=== PATIENT | female | born 1935 | race Caucasian/White ===

== ENCOUNTER 2019-09-06 13:19 | Emergency (ER) | payer OTHER ==
--- OUTSIDE RECORDS SUMMARY | 2019-09-06 13:31 | XMS REPORT | Clinical Summary ---
:1935 Author Organization [facility] Address [address] [place] [address] Care Team Providers Name Role Phone Amado Chambers Primary Care Provider Allergies Active Allergy Reactions Severity Noted Date Comments Adhesive Tape-Silicones 05/21/2015 Lactose 05/27/2015 GI disturbances Latex Rash Low 12/21/2014 Magnesium Oxide 08/14/2013 Other 05/21/2015 Medications Medication Sig Dispensed Refills Start End Date Status Date atorvastatin (LIPITOR) 0 Active 80 MG tablet 9 besifloxacin Apply 1 drop 0 Acti ve (BESIVANCE) 0.6 % to eye. 6 drops,suspension brimonidine-timolol Reported on 0 Active (COMBIGAN) 0.2-0.5 % 04/22/2016 ophthalmic solution calcium Take 1 0 Active carbonate-vitamin D3 tablet by (OYSTER SHELL mouth. CALCIUM-VIT D3) 500 mg-200 unit per tablet clopidogrel (PLAVIX) 75 0 Active mg tablet 9 difluprednate (DUREZOL) Apply 1 drop 0 Active 0.05 % drops to eye. 9 DULoxetine (CYMBALTA) 0 Active 30 MG capsule 9 hydroCHLOROthiazide as needed. 0 Active (HYDRODIURIL) 25 MG 7 tablet indapamide (LOZOL) 1.25 Take 1.25 mg 0 Active MG tablet by mouth. levothyroxine Take 100 mcg 0 Act jose (SYNTHROID, LEVOXYL) by mouth. 100 mcg tablet sertraline (ZOLOFT) 25 0 Active MG tablet 7 solifenacin (VESICARE) Take 5 mg by 0 Active 10 MG tablet mouth. lisinopril Take 10 mg 0 Active (PRINIVIL,ZESTRIL) 10 by mouth. mg tablet multivitamin Take 1 0 Active (THERAGRAN) tablet tablet by mouth. amLODIPine (NORVASC) 10 Take 10 mg 0 12/13 Discontinued mg tablet by mouth 9 19 (Therapy daily. completed) Active Problems Problem Noted Date Coronary artery disease involving jamul coronary annie ry of jamul heart 12/13/2018 without angina pectoris Bilateral carotid artery stenosis 12/13/2018 Dizzy 12/13/2018 History of KS (myocardial infarction) 12/13/2018 Preoperative cardiovascular examination 12/13/2018 Stented coronary artery 12/13/2018 Encounters Date Type Specialty Care Team Description 01/03/2019 Telephone Cardiology Anam Johnson MA Results (Nucle ar stress test) 12/13/2018 Office Visit Cardiology Valeri Benedict MD Coronary artery disease involving jamul coronary artery of jamul heart without angina pectoris (Primary Dx); Preoperative ca rdiovascular examination; Bilateral carot id artery stenosis; Dizzy; History of KS ( myocardial infarction); Stented coronar y artery after 09/05/2018 Social History Tobacco Use Types Packs/Day Years Used Date Former Smoker 1 Quit: 12/13/18 80 Smokeless Tobacco: Never Used Alcohol Use Drinks/Week oz/Week Comments Yes 2 Glasses of wine 6.0 2 Shots of liquor 2 Cans of beer Sex Assigned at Date Recorded Not on file Job Start Date Occupation Industry Not on file Not on file Not on file Travel History Travel Start Travel End No recent travel history available. Last Filed Vital Signs Vital Sign Reading Time Taken Comments Blood Pressure 117/71 12/13/2018 11:24 AM CDT Pulse 65 12/13/2018 11:24 AM CDT Temperature - - Respiratory Rate - - Oxygen Saturation - - Inhaled Oxygen Concentration - - Weight 66.7 kg (147 lb) 12/13/2018 11:24 AM CDT Height 156.8 cm (5' 1.75") 12/13/2018 11:24 AM CDT Body Mass Index 27.1 12/13/2018 11:24 AM CDT Plan of Treatment Health Maintenance Due Date Last Done Comments SHINGLES VACCINES (#1) 02/18/1986 65+ PNEUMOCOCCAL VACCINE (1 of 2 - PCV13) 02/18/2001 INFLUENZA VACCINE 10/28/2019 Procedures Procedure Name Priority Date/Time Associated Diagnosis Comme nts NM MYOCARDIAL Routine 12/29/2018 8:20 Coronary artery Results for this PERFUSION REST AM CDT disease involving procedur e are in STRESS 1 DAY jamul coronary artery the r esults of jamul heart section. without angina pectoris Bilateral carotid artery stenosis Dizzy CV STRESS TEST Routine 12/29/2018 8:20 Coronary artery Result s for this NUCLEAR CARDIO AM CDT disease involving procedur e are in jamul coronary artery the r esults of jamul heart section. without angina pectoris Bilateral carotid artery stenosis Dizzy US CAROTID DUPLEX Routine 12/27/2018 1:32 Coronary artery Res ults for this BILATERAL PM CDT disease involving procedure are in jamul coronary artery the r esults of jamul heart section. without angina pectoris Bilateral carotid artery stenosis Dizzy TTE COMPLETE, WO Routine 12/26/2018 5:12 Coronary artery Resu lts for this CONTRAST, W DOPPLER PM CDT disease involving pro cedure are in ([id number]) jamul coronary artery the r esults of jamul heart section. without angina pectoris Bilateral carotid artery stenosis Dizzy ECG 12-LEAD Routine 12/13/2018 10:28 Preoperative Results for this AM CDT cardiovascular procedure are in examination the results section. after 09/05/2018 Results Cv stress test (12/29/2018 8:20 AM CDT) Resting HR 64 [facility] Resting BP 130 [facility] Peak MET Achieved 1.0 [facility] Protocol Name LexiScan H MUSE Time in Exercise 00:01:00 [facility] Phase Max Systolic BP 130 [facility] Max Diastolic BP 83 [facility] Max Heart Rate 92 [facility] Max Predicted Heart 138 [facility] Rate Target HR Formula (220 - Age)*85% [facility] Test Indication CORONARY ARTERY DISEASE [facility] Arrhy During Ex [facility] ECG Interp Before EX [facility] ECG Interp During Ex [facility] Ex Summary Comment H MUSE Chest Pain Statement none [facility] Overall HR Response [facility] to Exercise Overall BP Response [facility] To Exercise Reason for As per Lexiscan H MUSE Termination protocol Stress Test -Waveform interpreted [facility] Impression in report associated with image study. No interpretation is provided as part of this Stress ECG report.-Electronically Signed By Jordan TOM, Marvin Brower ([id number]), slot editor Esteban Mcrae ([id number]) on 12/30/2018 4:37:43 PM Specimen Narrative Performed At This result has an attachment that is no t available. Performing Organization Address City/State/Zipcode Phone Number [facility] MUSE [address] [place] [address] Nm myocardial perfusion (12/29/2018 8:20 AM CDT) Specimen Narrative Performed At [facility] [address] [id number] Myocardial Pe rfusion Imaging Report Stress ECG tracings are availab le in M[employer], [employer] and [employer] All ECG interpretations a re included in this report Pat.Name: ISATU BRAND Pat.ID: [id number] St.Date: 12/27/2018 Refer.MD: VALERI BENEDICT MD Exam Time: 8:23:00 AM Study Type:Myocardial Perfusion Imaging Height: 61in Weight: 146.69lb BSA: 1.66 m2 Ag e: 1935,83Y Sex: FEMALE Nuclear Tech:ALANNA Sarmiento Nuclear Event ID:[id number] Order ID: [id number] Reason for Study:CAD, unspecified* Procedures: Single Day Rest / Stress Race: C Clinical Symptoms:Regadenoson SUMMARY: BASELINE ECG Normal Sinus Rhythm, Ante rolateral KS STRESS TEST RESULTS Maximal Predicted HR 138 beats/minute 85% Maximal Predicted HR 117 beats/minute Stress Test Duration 1 minutes 00 seco nds Resting Heart Rate 65 beats/minute Max imal Heart Rate 92 beats/minute Resting Blood Pressure 130/83 mmHg Max imal Blood Pressure 130/83 mmHg % Maximal Heart Rate Achieved 67% Symptoms During Test Nausea, Dizziness Reason for Stopping Test As per regade noson protocol Maximal ST-segment shift None Stress-Induced Arrhythmias None Ischemic electrocardiographic changes (S T-segment depression) did not occur at peak regadenoson stress. STRESS TEST INTERPRETATION Normal erica l regadenoson stress test. SCINTIGRAPHIC RESULTS Perfusion Defect Size (% LV) 30% Total 0% Ischemia 30% Scar Left Ventricular Perfusion Results There is a severe apical-lateral perfusi on defect during stress which remains unchanged with rest imaging. The re is a moderate apical, mid inferolateral and mid anterolateral perf usion defect during stress which remains unchanged with rest imagin g. There is a mild basal anterolateral perfusion defect during stress which remains unchanged with rest imaging. Gated SPECT Results The post stress left ventricular ejectio n fraction is 37% with akinesis of all hypoperfused segments Le ft ventricular end-diastolic volume is 78 ml; end-systolic volume is 49 ml. The left ventricle is of normal size at stress and rest. Conclusion Abnormal regadenoson Tc-99m sestamibi my ocardial perfusion study compatible with scar in the circumflex c oronary artery vascular territory. The apical perfusion defect c ould be due stenosis of the left anterior descending coronary artery . The LVEF is moderately depressed. Comments The study results indicate a intermediat e (1%-2%) annual risk for a cardiac or non-fatal myocardial in farction. Study Quality/Artifacts The study quality is good. Comparison to Previous Study None available. FINDINGS: Signed 12/29/2018 10:27 AM Marvin Ortega MD Procedure Note Interface, Radiology Results In - 2018 10:28 AM CDT [facility] and Cardiac CT [address] [place] [address] Myocardial Perfusion I maging Report Stress ECG tracings are available in [employer], [employer] and [employer] All ECG interpretations are in cluded in this report Pat.Name: ISATU BRAND Eloisa D: [id number] .Date: 12/27/2018 Refer .MD: VALERI BENEDICT MD Exam Time: 8:23:00 AM Study Type:Myocardial Perfusion Imaging Height: 61in Weigh t: 146.69lb BSA: 1.66 m2 Age: 12 1935,83Y Sex: FEMALE Nucle ar Tech:ALANNA Sarmiento Nuclear Event ID:[id number] Order ID: [id number] Reason for Study:CAD, unspecified* Procedures: Single Day Rest / Stress Race: C Clinical Symptoms:Regadenoson SUMMARY: BASELINE ECG Normal Sinus Rhythm, Anter olateral KS STRESS TEST RESULTS Maximal Predicted HR 138 beats/minute 8 5% Maximal Predicted HR 117 beats/minute Stress Test Duration 1 minutes 00 secon ds Resting Heart Rate 65 beats/minute Maxi mal Heart Rate 92 beats/minute Resting Blood Pressure 130/83 mmHg Maxi mal Blood Pressure 130/83 mmHg % Maximal Heart Rate Achieved 67% Symptoms During Test Nausea, Dizziness Reason for Stopping Test As per regaden oson protocol Maximal ST-segment shift None Stress-Induced Arrhythmias None Ischemic electrocardiographic changes (S T-segment depression) did not occur at peak regadenoson stress. STRESS TEST INTERPRETATION Normal erica l regadenoson stress test. SCINTIGRAPHIC RESULTS Perfusion Defect Size (% LV) 30% Total 0% Ischemia 30% Scar Left Ventricular Perfusion Results There is a severe apical-lateral perfusi on defect during stress which remains unchanged with rest imaging. The re is a moderate apical, mid inferolateral and mid anterolateral perf usion defect during stress which remains unchanged with rest imagin g. There is a mild basal anterolateral perfusion defect during s tress which remains unchanged with rest imaging. Gated SPECT Results The post stress left ventricular ejectio n fraction is 37% with akinesis of all hypoperfused segments Le ft ventricular end-diastolic volume is 78 ml; end-systolic volume is 49 ml. The left ventricle is of normal size at stress and rest. Conclusion Abnormal regadenoson Tc-99m sestamibi my ocardial perfusion study compatible with scar in the circumflex c oronary artery vascular territory. The apical perfusion defect c ould be due stenosis of the left anterior descending coronary artery . The LVEF is moderately depressed. Comments The study results indicate a intermediat e (1%-2%) annual risk for a cardiac or non-fatal myocardial in farction. Study Quality/Artifacts The study quality is good. Comparison to Previous Study None available. FINDINGS: Signed 12/29/2018 10:27 AM Marvin Ortega MD Performing Organization Address City/State/Zipcode Phone Number [facility] [address] [place] [address] Us carotid duplex (12/27/2018 1:32 PM CDT) Specimen Narrative Performed At [facility] Carotid Annie ry Ultrasound Report Pat.Name: ISATU BRAND Pat.ID: [id number] .Date: 12/27/2018 Refer.MD: VALERI BENEDICT MD Exam Time: 1:00:00 PM Study Type:C arotid Age: 12 1935,83Y Sex: FEMALE Sonogrphr: Nathalia Peters RVT Pat. Stat.:[facility] ol: SD, CPT - 4: 03185 Echo Fabiana nt ID:[id number] Order ID: [id number] Reason for Study:Abnormal EKG, Dizziness , Hx of KS, CAD, Stented coronary artery SUMMARY: CAROTID ARTERY SCAN RIGHT: There is smooth intimal lining in the common carotid artery. There is minimal hard plaque plaque note d in the bulb. Colorflow is undisturbed. There is antegrade flow in the vertebral artery. LEFT: There is smooth intimal li nohemi in the common carotid artery. There is hard and calcified no fani in the proximal internal carotid artery. Colorflow is undisturb ed . There is antegrade flow in the vertebral artery. PRELIMINARY FINDINGS 1. <50% stenosis in the bilateral inte rnal carotid artery. 2. There is antegrade flow in the verteb ral artery, bilaterally. 4. Mildly elevated velocity in the left subclavian artery. PHYSICIAN INTERPRETATION Bilateral carotid duplex examination dem onstrated atherosclerotic plaques in the bulbs. Less than 50% stenosis in the bulb and i nternal carotid artery, bilaterally. There is antegrade flow in the vertebral artery, bilaterally. FINDINGS: Carotid Findings: Right Left Verteb.Flw Antegrade Antegrade Subclavian Biphasic Biphasic MEASUREMENTS: DOPPLER Right CCA Dist CCA Dist PSV 49.2 cm/s CCA Dist EDV 3.28 cm/s Right CCA Mid CCA Mid PSV 66.7 cm/s CCA Mid EDV 7.66 cm/s Right CCA Prox CCA Prox PSV 70 cm/s CCA Prox EDV 5.47 cm/s Right Bulb Bulb PSV 49.2 cm/s Bulb EDV 6.56 cm/s Right ECA ECA PSV 45.9 cm/s ECA EDV 0 cm/s Right ICA Dist ICA Dist PSV 63.8 cm/s ICA Dist EDV 16.2 cm/s Right ICA Mid ICA Mid PSV 54.8 cm/s ICA Mid EDV 11.7 cm/s Right ICA Prox ICA Prox PSV 49.2 cm/s ICA Prox EDV 8.75 cm/s Right Vertebral Vertebral PSV 60.9 cm/s Vertebral EDV 8.71 cm/s Left CCA Dist CCA Dist PSV 43.5 cm/s CCA Dist EDV 7.24 cm/s Left CCA Prox CCA Prox PSV 65.2 cm/s CCA Prox EDV 0 cm/s Left Bulb Bulb PSV 36.8 cm/s Bulb EDV 6.13 cm/s Left ECA ECA PSV 64 cm/s ECA EDV 0 cm/s Left ICA Dist ICA Dist PSV 57.3 cm/s ICA Dist EDV 13.6 cm/s Left ICA Mid ICA Mid PSV 50.4 cm/s ICA Mid EDV 6.92 cm/s Left ICA Prox ICA Prox PSV 59.4 cm/s ICA Prox EDV 10.7 cm/s Left Vertebral Vertebral PSV 37.2 cm/s Vertebral EDV 0 cm/s Left CCA Mid CCA Mid PSV 50 cm/s CCA Mid ED V 7 cm/s Right ECA Prox ECA Prox PSV 46 cm/s ECA Prox EDV 0 cm/s Left ECA Prox ECA Prox PSV 64 cm/s ECA Prox EDV 0 cm/s Right SCA Prox SCA Prox PSV 153 cm/s SCA Prox EDV 0 cm/s Left SCA Prox SCA Prox PSV 194 cm/s SCA Prox EDV 0 cm/s Right ICA/CCA Ratio ICA/CCA PSV 0.738 Left ICA/CCA Ratio ICA/CCA PSV 1.19 Signed 12/30/2018 02:41 AM Valeri Benedict MD Procedure Note Interface, Radiology Results In - 2018 2:42 AM CDT [facility] Carotid Artery Ultras ound Report Pat.Name: ISATU BRAND I D: [id number] .Date: 12/27/2018 Refer .MD: VALERI BENEDICT MD Exam Time: 1:00:00 PM Study Type:Carotid Age: 12 1935,83Y Sex: FEMALE Sonogrphr: Nathalia Peters RVT Pat. Stat.:Outpatient Room: [facility] Vol: SD, CPT - 4: 39225 Echo Event ID:[id number] Order ID: [id number] Reason for Study:Abnormal EKG, Dizziness , Hx of KS, CAD, Stented coronary artery SUMMARY: CAROTID ARTERY SCAN RIGHT: There is smooth intimal lining i n the common carotid artery. There is minimal hard plaque plaque note d in the bulb. Colorflow is undisturbed. There is antegrade flow i n the vertebral artery. LEFT: There is smooth intimal linin g in the common carotid artery. There is hard and calcified not ed in the proximal internal carotid artery. Colorflow is undisturbe d . There is antegrade flow in the vertebral artery. PRELIMINARY FINDINGS 1. <50% stenosis in the bilateral inter nal carotid artery. 2. There is antegrade flow in the verteb ral artery, bilaterally. 4. Mildly elevated velocity in the left subclavian artery. PHYSICIAN INTERPRETATION Bilateral carotid duplex examination dem onstrated atherosclerotic plaques in the bulbs. Less than 50% stenosis in the bulb and i nternal carotid artery, bilaterally. There is antegrade flow in the vertebral artery, bilaterally. FINDINGS: Carotid Findings: Right Left Verteb.Flw Antegrade Antegrade Subclavian Biphasic Biphasic MEASUREMENTS: DOPPLER Right CCA Dist CCA Dist PSV 49.2 cm/s CCA Dist EDV 3.28 cm/s Right CCA Mid CCA Mid PSV 66.7 cm/s CCA Mid EDV 7.66 cm/s Right CCA Prox CCA Prox PSV 70 cm/s CCA Prox EDV 5.47 cm/s Right Bulb Bulb PSV 49.2 cm/s Bulb EDV 6.56 cm/s Right ECA ECA PSV 45.9 cm/s ECA EDV 0 cm/s Right ICA Dist ICA Dist PSV 63.8 cm/s ICA Dist EDV 16.2 cm/s Right ICA Mid ICA Mid PSV 54.8 cm/s ICA Mid EDV 11.7 cm/s Right ICA Prox ICA Prox PSV 49.2 cm/s ICA Prox EDV 8.75 cm/s Right Vertebral Vertebral PSV 60.9 cm/s Vert ebral EDV 8.71 cm/s Left CCA Dist CCA Dist PSV 43.5 cm/s CCA Dist EDV 7.24 cm/s Left CCA Prox CCA Prox PSV 65.2 cm/s CCA Prox EDV 0 cm/s Left Bulb Bulb PSV 36.8 cm/s Bulb EDV 6.13 cm/s Left ECA ECA PSV 64 cm/s ECA EDV 0 cm/s Left ICA Dist ICA Dist PSV 57.3 cm/s ICA Dist EDV 13.6 cm/s Left ICA Mid ICA Mid PSV 50.4 cm/s ICA Mid EDV 6.92 cm/s Left ICA Prox ICA Prox PSV 59.4 cm/s ICA Prox EDV 10.7 cm/s Left Vertebral Vertebral PSV 37.2 cm/s Vert ebral EDV 0 cm/s Left CCA Mid CCA Mid PSV 50 cm/s CCA Mid EDV 7 cm/s Right ECA Prox ECA Prox PSV 46 cm/s ECA Prox EDV 0 cm/s Left ECA Prox ECA Prox PSV 64 cm/s ECA Prox EDV 0 cm/s Right SCA Prox SCA Prox PSV 153 cm/s SCA Prox EDV 0 cm/s Left SCA Prox SCA Prox PSV 194 cm/s SCA Prox EDV 0 cm/s Right ICA/CCA Ratio ICA/CCA PSV 0.738 Left ICA/CCA Ratio ICA/CCA PSV 1.19 Signed 12/30/2018 02:41 AM Valeri Benedict MD Performing Organization Address City/State/Zipcode Phone Number [facility] [address] [place] [address] Echocardiogram complete w contrast and 3D if needed (12/26/2018 5:12 PM CDT) Specimen Narrative Performed At [facility] Echo cardiography Report Pat.Name: ISATU BRAND.ID: [id number] .Date: 12/26/2018 Refer.MD: VALERI BENEDICT MD Exam Time: 1:53:00 PM Study Type:R outine Echo Height: 62in Weight: 147lb BSA: 1.68 m2 Ag e: 1935,83Y Sex: FEMALE BP: 117/71 HR: 70 bpm Sonogrphr: VICKI Brown FASE Pat. Stat.:Outpatient Room: [facility] Study Status:Final Echo Event ID:[id number] Order ID: [id number] Reason for Study:Coronary artery disease involving jamul coronary artery of jamul heart without angina pe ctoris Procedures: 2D Echo, Colorflow Doppler Race: C SUMMARY: RV/LV systolic function are normal. FINDINGS: LV: LV size is normal. LV EF is normal. Overall wall motion is normal. Estimated EF is 60-64%. RV: RV size is mildly enlarged. RV systolic function is normal. LA: LA volume is mildly enlarge d. RA: RA size is normal. AO: Aortic root diameter is nor mal. NO: No pericardial effusion. AV: Aortic valve sclerosis. MV: Severe mitral annular calci fication. A trace of mitral regurgitation. PV: No structural PV abnormalit ies noted. TV: No structural TV abnormalit ies noted. Mild tricuspid regurgitation Olvera: Diastolic dysfunction Grade I (Mild): Impaired relaxation with normal LV filling pressures. Other: Estimated PA systolic pressu re is 30 mmHg, assuming a mean RAP of 5 mmHg. MEASUREMENTS: 2D Parasternal Long [place] Ao An 1.8 cm LVPWd 1.3 cm Ao Rtd 3 cm Index 1.8 cm/m2 LA Ds 3.1 cm IVSd 1.2 cm RWT 0.8 LVIDd 3.2 cm Index 1.9 cm/m2 LV Mass 132.8 g (87-129 ) LVIDs 1.6 cm LVOT 1.9 cm LV%fs 51.2 % Left Ventricle LVM Index 79 g/m LA Sng Plane LA Area 17.3 cm (8.8-23.4) LA Vol 53.4 ml Index 31.8 ml/m2 LA LngAx 4.7 cm LVOT LVOT Area 2.9 cm Signed 12/27/2018 03:10 PM Sandy Powers M.D. Procedure Note Interface, Radiology Results In - 2018 3:11 PM CDT [facility] Echocardiography Report Pat.Name: ISATU BRAND PatAngelaI D: [id number] St.Date: 12/26/2018 Refer .MD: VALERI BENEDICT MD Exam Time: 1:53:00 PM Study Type:Routine Echo Height: 62in Weigh t: 147lb BSA: 1.68 m2 Age: 12 1935,83Y Sex: FEMALE BP: 117/71 HR: 70 bpm Sonogrphr: VICKI Brown FASE Pat. Stat.:Outpatient Room: [facility] Study Status:Final Echo Event ID:[id number] Order ID: [id number] Reason for Study:Coronary artery disease involving jamul coronary artery of jamul heart without angina pe ctoris Procedures: 2D Echo, Colorflow Doppler Race: C SUMMARY: RV/LV systolic function are normal. FINDINGS: LV: LV size is normal. LV EF is no rmal. Overall wall motion is normal. Estimated EF is 60-64 %. RV: RV size is mildly enlarged. RV systolic function is normal. LA: LA volume is mildly enlarged. RA: RA size is normal. AO: Aortic root diameter is normal . NO: No pericardial effusion. AV: Aortic valve sclerosis. MV: Severe mitral annular calcific ation. A trace of mitral regurgitation. PV: No structural PV abnormalities noted. TV: No structural TV abnormalities noted. Mild tricuspid regurgitation Olvera: Diastolic dysfunction Grade I (Mild): Impaired relaxation with normal LV filling pressu res. Other: Estimated PA systolic pressure is 30 mmHg, assuming a mean RAP of 5 mmHg. MEASUREMENTS: 2D Parasternal Long [place] Ao An 1.8 cm LVPW d 1.3 cm Ao Rtd 3 cm Inde x 1.8 cm/m2 LA Ds 3.1 cm IVSd 1.2 cm RWT 0.8 LVIDd 3.2 cm Inde x 1.9 cm/m2 LV Mass 132.8 g (87-129) LVIDs 1.6 cm LVOT 1.9 cm LV%fs 51.2 % Left Ventricle LVM Index 79 g/m LA Sng Plane LA Area 17.3 cm (8.8-23.4) L A Vol 53.4 ml Index 31.8 ml/m2 LA LngAx 4.7 cm LVOT LVOT Area 2.9 cm Signed 12/27/2018 03:10 PM Sandy Powers M.D. Performing Organization Address City/State/Zipcode Phone Number [facility] [address] [place] [address] ECG 12 lead (12/13/2018 10:28 AM CDT) Pathologist Sig nature Ventricular rate 66 [facility] Atrial rate 66 [facility] IL interval 198 [facility] QRSD interval 72 [facility] QT interval 400 [facility] QTC interval 419 [facility] P axis 1 64 [facility] QRS axis 1 29 [facility] M[facility] T wave axis 114 [facility] MUSE EKG impression Normal sinus rhythm-Low [facility] voltage QRS-Septal infarct , age undetermined-Abnormal ECG-- Specimen Narrative Performed At This result has an attachment that is no t available. 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
--- OUTSIDE RECORDS SUMMARY | 2019-09-06 13:32 | XMS REPORT | Clinical Summary ---
:1935 Author Organization [facility] Address [address] [place] [address] Care Team Providers Name Role Phone Joseph Chambers MD Primary Care Provider Allergies Active Allergy Reactions Severity Noted Date Comments Adhesive Tape 12/21/2016 Lactose Other (See Comments) 05/27/2015 GI dist urbances Latex Rash Low 12/21/2014 Medications Medication Sig Dispensed Refills Start Date End Date Status difluprednate (DUREZOL) Apply to eye(s). 0 Active 0.05 % Drop brimonidine-timolol Place 1 drop 0 Active (COMBIGAN) 0.2-0.5 % into both eyes ophthalmic solution every 12 (twelve) hours. gabapentin (NEURONTIN) Take 300 mg by 0 Active 300 MG capsule mouth daily . lisinopril Take 10 mg by 0 Activ e (PRINIVIL,ZESTRIL) 10 MG mouth daily. tablet levothyroxine Take 100 mcg by 0 Active (SYNTHROID, LEVOTHROID) mouth daily. 100 MCG tablet calcium Take 1 tablet by 0 Act jose carbonate-vitamin D2 500 mouth 2 (two) mg(1,250mg) -200 unit times daily. tablet multivitamin per tablet Take 1 tablet by 0 Active mouth daily. magnesium 30 mg tablet Take 30 mg by 0 Active mouth daily . amLODIPine (NORVASC) 10 Take 10 mg by 0 Active MG tablet mouth daily. lactase (LACTAID) 3,000 Take 1 tablet by 0 Active unit tablet mouth 3 (three) times daily with meals. solifenacin (VESICARE) Take 5 mg by 0 Active 10 MG tablet mouth daily. indapamide (LOZOL) 1.25 Take 1.25 mg by 0 Active MG tablet mouth every morning. besifloxacin 0.6 % DrpS Apply to eye(s) 0 Active 3 (three) times daily. nepafenac 0.3 % DrpS Apply to eye(s). 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 Last Filed Vital Signs Not on file Plan of Treatment Not on file Implants Implanted Type Area Vb Net Developer Device Shelf Model / Identifier Expiration Serial / Date Lot Valve Glaucoma Ahmed Flx Plt - [id number] Ophthalmology Right: [employer] [facility] 10/17/2019 FP-7 / Implanted: Qty: 1 on 12/24/2014 by Adeel Powers MD Eye [id number] / Iol Acrysof Roberta 6.0 13 23d [id number] - [id number] Ophthalmol ogy Left: Eye [facility] 01/27/2020 [id number] / Implanted: Qty: 1 on 05/28/2015 by Maddie Winston MD [id number] / Cornea Whole Cornea - [id number] Tissue Right: [facility] 12/29/2016 CORNEA / Implanted: Qty: 1 on 12/22/2016 by Maddie Winston MD Graft/Delgado bstitute Cornea [facility] [id number] / [id number] Sterile Cornea Half Halo Half Thickness Right: 11/14/2015 / Implanted: Qty: 1 on 12/24/2014 by Adeel Powers MD Eye [id number] / Results Not on fileafter 09/05/2018 Insurance Payer Benefit Plan / Group Subscriber ID Type Phone A ddress [employer] ALL xxxxxxxxx Maps Contracted Guarantor Name Account Type Relation to Date of Phone Billing Patient Address Christina Begum Personal/Family Self [id number] (Home) [address] [place] [address]
--- OUTSIDE RECORDS SUMMARY | 2019-09-06 13:32 | XMS REPORT ---
:1935 Author Organization [employer] Care Team Providers Name Role Phone Sanaz Hunter Provider Role Unavailable Allergies No Known Allergies Problems Problem Type Condition Code Onset Dates Condition Statu s Problem Chronic obstructive pulmonary J44.0 Active disease with acute lower respiratory infection Problem Acute bronchitis, unspecified J20.9 Active Problem Jose cyst M71.20 Active Problem Fecal incontinence R15.9 Active Problem Laryngitis J04.0 Active Problem Bilateral hearing loss, H91.93 Acti ve unspecified hearing loss type Problem Depression with anxiety F41.8 Acti ve Problem Cardiac ischemia I25.9 Active Problem Stage 3 chronic kidney disease N18.3 Active Problem Contusion of thoracic wall, S20.20XA Active unspecified area of thoracic wall, initial encounter Problem Acquired hypothyroidism E03.9 Acti ve Problem Rib pain on right side R07.81 Activ e Problem Anemia D64.9 Active Problem Neuropathy, peripheral G62.9 Activ e Problem Essential hypertension I10 Activ e Problem Incontinence R32 Active Problem Status post fall Z91.81 Active Problem Contusion of right upper arm, S40.021A Active initial encounter Problem Right arm pain M79.601 Active Problem History of [place] (myocardial I25.2 Ac tive infarction) Problem Low back pain M54.5 Active Problem Cataract H26.9 Active Problem Osteoarthritis M19.90 Active Problem Renal failure N19 Active Problem 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
--- OUTSIDE RECORDS SUMMARY | 2019-09-06 13:32 | XMS REPORT | Continuity of Care Document ---
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 Neck pain Active 03/29/19 Problem 08/18/2018 [facility] (finding) 00 OSTEOARTHRITIS( Active 03/29/19 Problem 08/18/2018 SKILLED NURSING I Confirmed) 00 Depression(Conf Active Problem 08/18/2018 NO MEDS, DUE [facility] irmed)1 TO LOSS OF JOB LAST WK HX OF KIDNEY Resolved Problem 08/18/2018 [facility] INFECTIONS(Conf irmed) Hypertensive Active Problem 08/18/2018 MED X2 [facility] disorder, systemic arterial (disorder) HYPOTHYROIDISM( Active Problem 08/18/2018 MED X1 SKILLED NURSING I Confirmed)4 Medications Medication Details Route Status Patient Ordering Order Source Instructions Provider Date Vicodin 5 mg-500 1 tabs, 535707841 [facility] mg oral tablet Oral, 013 q4hr, PRN for pain, # 24 tabs, 0 Refill(s) Flintstones 1 tabs, Active [facility] Multivitamins Chewed, 013 oral tablet, Daily, # chewable 100 tabs, 0 Refill(s) Magnesium Oxide mg tabs, Active [facility] 400 MG Oral Oral, 013 Tablet Daily, 0 Refill(s) Vitamin B-12 500 mcg tabs, Active [facility] mcg oral tablet Oral, 013 Daily, 0 Refill(s) gabapentin 300 mg caps, Active [facility] MG Oral Capsule Oral, BID, 013 0 Refill(s) Synthroid Daily, 0 Active [facility] Refill(s) 013 amlodipine 5 mg mg tabs, Active [facility] oral tablet Oral, 013 Daily, 0 Refill(s) lisinopril 10 mg mg tabs, Active [facility] oral tablet Oral, qAM, 013 0 Refill(s) Allergies, Adverse Reactions, Alerts Substance Category Reaction Severity Reaction Status Date Comments S ource type Reported TAPE Assertion SKIN Propensity Active SKILLED NURSING I IRRITATION to adverse reactions to substance Immunizations No Data Provided for This Section Results No Data Provided for This Section Pathology Reports No Data Provided for This Section Diagnostic Reports No Data Provided for This Section Consultation Notes No Data Provided for This Section Discharge Summaries No Data Provided for This Section History and Physicals No Data Provided for This Section Vital Signs No Data Provided for This Section Encounters Location Location Encounter Encounter Reason Attending ADM DC Stat us Source Details Type Number For Provider Date Date Visit [facility] Outpatient [id number] Mohammad 08/16 08/16 Active Surg ical [facility] Outpatient [id number] Mohammad 08/16 08/17 [facility] Procedures No Data Provided for This Section Assessment and Plan No Data Provided for This Section Plan of Care No Data Provided for This Section Social History Social History Date Source Social History TypeResponse 09/08/2012 [facility] Smoking Status Former smoker; Type: Cigarettes; Tobacco use per day: 28; St opped at age: 61; entered on: 09/08/12 Family History No Data Provided for This Section Advance Directives No Data Provided for This Section Functional Status No Data Provided for This Section
--- OUTSIDE RECORDS SUMMARY | 2019-09-06 13:32 | XMS REPORT ---
[...] arm pain M79.601 Active Problem History of [place] (myocardial I25.2 Ac tive infarction) Problem Low [...]
--- OUTSIDE RECORDS SUMMARY | 2019-09-06 13:33 | XMS REPORT ---
:1935 Author Organization eClinicalWorks Care Team Providers Name Role Phone Elsa Sanaz Provider Role Unavailable Allergies, Adverse Reactions, Alerts Substance Reaction Event Type Cordran tape hives Non Drug Allergy Problems Problem Type Condition Code Onset Dates Condition Statu s Assessment Acquired hypothyroidism E03.9 Acti ve Assessment Stage 3 chronic kidney disease N18.3 Active Assessment Essential hypertension I10 Activ e Assessment History of [place] (myocardial I25.2 Ac tive infarction) Problem Chronic obstructive pulmonary J44.0 Active disease with acute lower respiratory infection Problem Acute bronchitis, unspecified J20.9 Active Problem Jose cyst M71.20 Active Problem Fecal incontinence R15.9 Active Problem Depression with anxiety F41.8 Acti ve Problem Bilateral hearing loss, H91.93 Acti ve unspecified hearing loss type Problem Cardiac ischemia I25.9 Active Problem Incontinence R32 Active Problem Contusion of thoracic wall, S20.20XA Active unspecified area of thoracic wall, initial encounter Problem Contusion of right upper arm, S40.021A Active initial encounter Problem Stage 3 chronic kidney disease N18.3 Active Problem Rib pain on right side R07.81 Activ e Problem Right arm pain M79.601 Active Problem Osteoarthritis M19.90 Active Problem Anemia D64.9 Active Problem Chronic diarrhea K52.9 Active Problem Neuropathy, peripheral G62.9 Activ e Problem History of [place] (myocardial I25.2 Ac tive infarction) Problem Status post fall Z91.81 Active Problem Essential hypertension I10 Activ e Problem Acquired hypothyroidism E03.9 Acti ve Assessment Depression with anxiety F41.8 Acti ve Problem Cataract H26.9 Active Assessment Chronic diarrhea K52.9 Active Problem Skin cancer C44.90 Active Problem Renal failure N19 Active Problem Low back pain M54.5 Active Problem 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 Problem Laryngitis J04.0 Active Problem Renal failure, unspecified N19 A ctive chronicity Problem 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 Ac tive Medications Medication Code Code Instructions Start End Status Dosage System Date Date Metoprolol Tartrate NDC 32973989192 25 MG Orally Act jose 1 tablet Twice daily with food Hydrochlorothiazide [facility] 69084148801 25 MG Orally Act jose 1 tablet Once daily in the morning Multivitamin [facility] 97818458910 - Orally Active not defined Lidoderm [facility] 98629319136 5 % Externally Active 1 pa tch Once a day to skin remove after 12 hours Magnesium [facility] [address]-63 400 MG Orally Active 1 tablet bid with a meal Plavix [facility] 47980324279 75 MG Orally Active 1 table t Once a day Levothyroxine Sodium [facility] 98244537624 75 MCG Orally A ctive 1 tablet Once daily in the morning on an empty stomach Amlodipine Besylate [facility] 52420923046 5 MG Orally Acti ve 1 tablet Once daily Duloxetine HCl [facility] 20064152451 30 MG Orally Active 1 capsule Once daily Gabapentin [facility] 34151410917 300 MG Active TAKE 1 TABLET BY MOUTH 3 TIMES DAILY *MAY MAKE DROWSY* Atorvastatin Calcium [facility] 94999426851 80 MG Orally Ac tive 1 tablet Once daily in evening Vitamin B12 [facility] 02329071412 1000 MCG Active 1 table t Orally Once a day Clopidogrel Bisulfate [facility] 27493630328 75 MG Orally A ctive 1 tablet Once daily Results No Known Results Summary Purpose eClinicalWorks Submission
[2019-09-06] MEDS ORDERED: TETANUS & DIPHTHERIA TOX,ADULT 0.5 ML VIAL ONE (14:55)
[2019-09-06] MEDS ORDERED: NA CHLORIDE 0.9% 500 ML ONE (14:55)
[2019-09-06] MEDS ORDERED: CEFAZOLIN/SWI 1gm 2 GM/20 ML SYR ONE (14:55)
[2019-09-06 15:02] LABS: Absolute Lymphocytes (CBC) 1.3 K/uL (0.7-4.9); Basophils % 0.4 % (0-1.3); Lymphocytes % 10.8 % (15.3-44.8); MPV 10.2 fL (7.6-11.3); RBC Red Blood Cell Count 3.96 M/uL (3.86-4.86)
--- NOTE | 2019-09-06 15:06 | RAD REPORT ---
EXAM DESCRIPTION: CT - [id number] - 09/06/2019 2:53 pm CLINICAL HISTORY: Trauma, head and neck injury. PAIN COMPARISON: Facial Bones W/ Mpr dated 09/06/2019 TECHNIQUE: Axial 5 mm thick images of the head were obtained. Axial 2 mm thick images of the cervical spine were obtained with sagittal and coronal reconstruction images generated and reviewed. All CT scans are performed using dose optimization technique as appropriate and may include automated exposure control or mA/KV adjustment according to patient size. FINDINGS: CT HEAD WITHOUT CONTRAST: No acute hemorrhage, hydrocephalus or extra-axial collection is identified.Moderate generalized brain atrophy is present with mild periventricular and deep white matter chronic microvascular ischemic ch anges.No areas of brain edema or midline shift. The paranasal sinuses and mastoids are clear.The calvarium is intact. CT CERVICAL SPINE WITHOUT CONTRAST: No fracture or subluxation.Moderate multilevel spondylosis is present of the cervical spine with 3 mm degenerative anterolisthesis of C5 on 6.No prevertebral soft tissues swelling is identified. IMPRESSION: No acute intracranial or cervical spine findings.
--- NOTE | 2019-09-06 15:10 | RAD REPORT ---
EXAM DESCRIPTION: CT - CTFB CLINICAL HISTORY: Deformity;Facial pain;Fracture Trauma, facial pain COMPARISON: Head Brain Wo Cont dated 04/27/2017 TECHNIQUE: Axial 2 mm thick images of the face were obtained with sagittal and coronal reconstructio n images. All CT scans are performed using dose optimization technique as appropriate and may include automated exposure control or mA/KV adjustment according to patient size. FINDINGS: Moderate nasal bone fracture is present with adjacent soft tissue swelling.No additional f acial bone fracture seen. Moderate right periorbital soft tissue swelling.The mandible is intact. The globes and orbital contents are grossly unremarkable.The paranasal sinuses and mastoids are clear . IMPRESSION: Moderate nasal bone fracture.
[2019-09-06 15:14] LABS: Potassium 5.3 mmol/L (3.5-5.1)
[2019-09-06] MEDS ORDERED: MORPHINE 2 MG/ML SYR ONE (15:16)
[2019-09-06] MEDS ORDERED: ONDANSETRON 4 MG/2 ML VIAL ONE (15:16)
--- NOTE | 2019-09-06 15:36 | ER ---
Nurse's Notes [facility] Name: Christina Begum Age: 84 yrs Sex: Female : 1935 Arrival Date: 09/06/2019 Time: 13:25 Bed 5 Private MD: Diagnosis: Laceration without foreign body of other part of head-face, mouth;Fracture of nasal bones Presentation: 09/05 13:31 Chief complaint: Patient's son or daughter states: she was hard headed and she [place] the [place]ank[place] and she stumbled over the achvr dog and down she went, she is on blood thinners, she doesn't know what she hit her head on and all kinds of garbage and old tires and concrete pieces down there, and 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 Coronavirus screen: Patient denies a cough. Patient denies shortness of breath or difficulty breathing. Patient denies measured and/or subjective temperature greater than 100.4F prior to today's visit. Patient denies travel on a cruise ship or to a country the [facility] currently lists as an affected area. Patient denies contact with known and/or suspected case of COVID-19. Ebola Screen: Patient denies travel to an Ebola-affected area in the 21 days before illness onset. Initial Sepsis Screen: Does the patient meet any 2 criteria? No. Patient's initial sepsis screen is negative. Does the patient have a suspected source of infection? No. Patient's initial sepsis screen is negative. Risk Assessment: Do you want to hurt yourself or someone else? Patient reports no desire to harm self or others. Onset of symptoms was September 06, 2019. 13:31 Method Of Arrival: Wheelchair tw2 13:31 Acuity: ABELINO 3 tw2 13:43 Care prior to arrival: None. Mechanism of Injury: Fall from standing position. Trauma tw2 event details: Injury occurred in the [facility]. Triage Assessment: 13:34 General: Appears uncomfortable, Behavior is calm, cooperative, appropriate for age. tw2 Pain: Complains of pain in face and nose. Trauma Activation: Alert Physician: ED Physician; Name: Dr العراقي; Notified At: 13:29; Arrived At: 14:30 Physician: General Surgeon; Name: ; Notified At: 13:29; Arrived At: Physician: Radiology; Name: Carlito; Notified At: 13:29; Arrived At: Physician: Respiratory; Name: ; Notified At: 13:29; Arrived At: Physician: Lab; Name: ; Notified At: 13:29; Arrived At: Historical: - Allergies: 13:34 No Known Allergies; tw2 - Home Meds: 13:42 Multi-Day Oral tab [Active]; levothyroxine 75 mcg tab 1 tab once daily [Active]; tw2 indapamide 1.25 mg Oral tab 1 tab once daily [Active]; hydrochlorothiazide 25 mg Oral tab 1 tab once daily [Active]; gabapentin 300 mg Oral cap 1 cap 3 times per day [Active]; duloxetine 30 mg Oral cpDR 1 cap once daily [Active]; amlodipine 5 mg tab 1 tab once daily [Active]; clopidogrel oral oral [Active]; - PMHx: 13:34 Depression; Hypertension; Hypothyroidism; tw2 - PSHx: 13:42 leg surgery; Right cornea transplant; tw2 - Immunization history:: Last tetanus immunization: unknown. - Social history:: Smoking status: . Screenin:40 Abuse screen: Denies threats or abuse. Nutritional screening: No deficits noted. tw2 Tuberculosis screening: No symptoms or risk factors identified. Fall Risk Secondary diagnosis (15 points) impaired mobility. Primary Survey: 14:15 NO uncontrolled hemorrhage observed. A: The patient is alert. Airway: patent, No sv supplemental oxygen in use on arrival. Oral cavity: clear, Trachea midline. Breathing/Chest: Respiratory pattern: regular, Respiratory effort: spontaneous, unlabored, Chest inspection: symmetrical rise and fall of the chest. Circulation: Heart tones present. Pulses: palpable right radial artery and left radial artery. Skin color: pink, Skin temperature: warm, dry. Disability Alert. Exposure/Environment: All clothing and personal items were removed. Forensic evidence collection is not deemed to be indicated at this time. Items placed in patient belonging bag. There is no evidence of uncontrolled external bleeding. Obvious injury(ies) are noted at this time: mx abrasions, road rash, and laceration A warming method has been applied: A warm blanket has been provided to the patient. 14:30 Reassessment Airway Airway Patent Oxygen No O2 Oral cavity Clear Trachea Midline sv Breathing/Chest Respiratory pattern Regular Respiratory effort Spontaneous Unlabored Chest inspection Symmetrical Circulation Heart tones Present Pulses Palpable Color [place] Temperature Warm Dry Disability Alert. Secondary Survey: 14:15 HEENT: Eyes: Edema noted right eye. Nose: bleeding noted to bilateral nares. deformity sv noted bridge of nose. Gastrointestinal: No deficits noted. : No signs and/or symptoms were reported regarding the genitourinary system. Musculoskeletal: No signs and/or symptoms reported regarding the musculoskeletal system. Injury Description: Abrasion sustained to nose and inside upper and lower lip is bleeding, was sustained 30-60 minutes ago. Laceration sustained to inside upper and inner lip and nose is 0.5 to 2.5 cm long, mild bleeding was sustained 30-[address] rash noted to under her nose. Assessment: 14:15 Reassessment: Patient appears in no apparent distress at this time. No changes from sv previously documented assessment. Derm: Skin is pink, warm \T\ dry. Bruising that is on right eye, right cheek and nose. Musculoskeletal: Swelling present in right eye, right cheek and nose. 15:00 Reassessment: Patient appears in no apparent distress at this time. No changes from sv previously documented assessment. Patient and/or family updated on plan of care and expected duration. Pain level reassessed. Patient is alert, oriented x 3, equal unlabored respirations, skin warm/dry/pink. 16:19 Reassessment: Patient appears in no apparent distress at this time. Patient and/or sv family updated on plan of care and expected duration. Pain level reassessed. Patient is alert, oriented x 3, equal unlabored respirations, skin warm/dry/pink. Patient states feeling better. Patient states symptoms have improved. Vital Signs: 13:31 BP 139 / 77; Pulse 52; Resp 17; Temp 97.8; Pulse Ox 97% on R/A; Weight 63.5 kg (R); tw2 Height 5 ft. 2 in. (157.48 cm); Pain 5/10; 14:30 BP 142 / 66; Pulse 52; Resp 16; Temp 98; Pulse Ox 99% ; sv 14:55 BP 170 / 51; Pulse 51; Resp 16; Temp 98; Pulse Ox 100% ; sv 15:00 BP 139 / 71; Pulse 50; Resp 16; Pulse Ox 100% ; sv 16:00 BP 134 / 72; Pulse 51; Resp 16; Temp 98; Pulse Ox 100% ; sv 13:31 Body Mass Index 25.61 (63.50 kg, 157.48 cm) tw2 [place]rum Coma Score: 13:31 Eye Response: spontaneous(4). Verbal Response: oriented(5). Motor Response: obeys sv commands(6). Total: 15. 14:30 Eye Response: spontaneous(4). Verbal Response: oriented(5). Motor Response: obeys sv commands(6). Total: 15. 14:42 Eye Response: spontaneous(4). Verbal Response: oriented(5). Motor Response: obeys casey commands(6). Total: 15. 14:55 Eye Response: spontaneous(4). Verbal Response: oriented(5). Motor Response: obeys sv commands(6). Total: 15. 16:00 Eye Response: spontaneous(4). Verbal Response: oriented(5). Motor Response: obeys sv commands(6). Total: 15. Trauma Score (Adult): 13:31 Eye Response: spontaneous(1); Verbal Response: oriented(1); Motor Response: obeys sv commands(2); Systolic BP: > 89 mm Hg(4); Respiratory Rate: 10 to 29 per min(4); Tammie Score: 15; Trauma Score: 12 14:30 Eye Response: spontaneous(1); Verbal Response: oriented(1); Motor Response: obeys sv commands(2); Systolic BP: > 89 mm Hg(4); Respiratory Rate: 10 to 29 per min(4); Tammie Score: 15; Trauma Score: 12 14:55 Eye Response: spontaneous(1); Verbal Response: oriented(1); Motor Response: obeys sv commands(2); Systolic BP: > 89 mm Hg(4); Respiratory Rate: 10 to 29 per min(4); Tammie Score: 15; Trauma Score: 12 16:00 Eye Response: spontaneous(1); Verbal Response: oriented(1); Motor Response: obeys sv commands(2); Systolic BP: > 89 mm Hg(4); Respiratory Rate: 10 to 29 per min(4); Orrum Score: 15; Trauma Score: 12 ED Course: 13:25 Patient arrived in ED. fj1 13:30 Patient maintains SpO2 saturation greater than 95% on room air. tw2 13:33 Triage completed. tw2 13:33 Arm band placed on. tw2 13:36 Bed in low position. Call light in reach. Side rails up X 1. Adult w/ patient. tw2 13:42 Jacob العراقي MD is Attending Physician. casey 13:43 Danielle Blum RN is Primary Nurse. sv 14:15 Thermoregulation: warm blanket given to patient. sv 14:16 Wound care: to abrasions, road rash, and lacerations located on right lower eyelid, sv nose and mouth, inside of lower and upper lip was cleaned with Hibiclens, ice pack applied. Patient tolerated well. 14:40 Inserted saline lock: 20 gauge in right antecubital area, using aseptic technique. sv Blood collected. Flushed right antecubital with 5 ml normal saline. 14:54 CT Head C Spine In Process Unspecified. EDMS 14:54 CT Facial Bones W/O Con In Process Unspecified. EDMS 14:[address] Patient moved back from CT. sv 15:35 Eleuterio Fink MD is Referral Physician. casey 16:19 No provider procedures requiring assistance completed. IV discontinued, intact, sv bleeding controlled, Pressure dressing applied, IV infiltrated, informed Dr العراقي. Administered Medications: 15:05 Drug: NS 0.9% 500 ml Route: IV; Rate: bolus; Site: right antecubital; sv 16:18 Follow up: Response: No adverse reaction; IV Status: Completed infusion; IV Intake: sv 250ml 15:05 Drug: Ancef 2 grams Route: IVPB; Infused Over: 30 mins; Site: right antecubital; sv 15:05 Drug: Tetanus-Diphtheria Toxoid Adult 0.5 ml {Software Tester: [email or web address]. Exp: sv 05/12/2021. Lot #: [id number]. } Route: IM; Site: right deltoid; 15:21 Follow up: Response: No adverse reaction sv 15:12 Drug: Zofran (Ondansetron) 4 mg Route: IVP; Site: right antecubital; sv 16:00 Follow up: Response: No adverse reaction sv 15:14 CANCELLED (Physician Discretion): Tylenol 650 mg PO once sv 15:14 Drug: morphine 2 mg {Note: rass1.} Route: IVP; Site: right antecubital; sv 16:00 Follow up: Response: No adverse reaction; Marked relief of symptoms; Pain is decreased; sv RASS: Alert and Calm (0) 15:36 Drug: Neosporin Ointment 1 application Route: Topical; Site: affected area; sv 15:57 Drug: Augmentin 875 mg Route: PO; sv 16:17 Follow up: Response: No adverse reaction sv Intake: 13:31 PO: 0ml; Total: 0ml. sv 14:30 PO: 0ml; Total: 0ml. sv 14:55 PO: 0ml; Total: 0ml. sv 16:00 PO: 0ml; Total: 0ml. sv 16:18 IV: 250ml; Total: 250ml. sv Output: 13:31 Urine: 0ml; Total: 0ml. sv 14:30 Urine: 0ml; Total: 0ml. sv 14:55 Urine: 0ml; Total: 0ml. sv 16:00 Urine: 0ml; Total: 0ml. sv Outcome: 15:35 Discharge ordered by . casey 16:19 Discharged to home via wheelchair, with friend. sv 16:19 Condition: stable 16:19 Discharge instructions given to patient, friend, Instructed on discharge instructions, follow up and referral plans. medication usage, wound care, Demonstrated understanding of instructions, follow-up care, medications, wound care, Prescriptions given X 2. 16:20 Patient's length of stay in the Emergency Department was greater than 2 hours. d/t sv needing ER disposition by ER MDPatient's length of stay extended due to 16:20 Patient left the ED. 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
--- NOTE | 2019-09-06 15:36 | EDPHYS ---
Physician Documentation [facility] Name: Christina Begum Age: 84 yrs Sex: Female : 1935 Arrival Date: 09/06/2019 Time: 13:25 Bed 5 Private MD: ED Physician Jacob العراقي HPI: 09/05 14:32 This 84 yrs old Female presents to ER via Wheelchair with complaints of Fall casey Injury. 14:32 Details of fall: The patient fell from an upright position, while walking. Onset: The casey symptoms/episode began/occurred just prior to arrival. Associated injuries: The patient sustained injury to the head, contusion, deformity, hematoma, laceration, pain, swelling, tenderness. Severity of symptoms: At their worst the symptoms were moderate, in the emergency department the symptoms are unchanged. The patient has not experienced similar symptoms in the past. Historical: - Allergies: 13:34 No Known Allergies; tw2 - Home Meds: 13:42 Multi-Day Oral tab [Active]; levothyroxine 75 mcg tab 1 tab once daily [Active]; tw2 indapamide 1.25 mg Oral tab 1 tab once daily [Active]; hydrochlorothiazide 25 mg Oral tab 1 tab once daily [Active]; gabapentin 300 mg Oral cap 1 cap 3 times per day [Active]; duloxetine 30 mg Oral cpDR 1 cap once daily [Active]; amlodipine 5 mg tab 1 tab once daily [Active]; clopidogrel oral oral [Active]; - PMHx: 13:34 Depression; Hypertension; Hypothyroidism; tw2 - PSHx: 13:42 leg surgery; Right cornea transplant; tw2 - Immunization history:: Last tetanus immunization: unknown. - Social history:: Smoking status: . ROS: 14:33 Constitutional: Negative for fever, chills, and weight loss, Neck: Negative for injury, casey pain, and swelling, Cardiovascular: Negative for chest pain, palpitations, and edema, Respiratory: Negative for shortness of breath, cough, wheezing, and pleuritic chest pain, Abdomen/GI: Negative for abdominal pain, nausea, vomiting, diarrhea, and constipation, Back: Negative for injury and pain, : Negative for injury, bleeding, discharge, and swelling, MS/Extremity: Negative for injury and deformity, Neuro: Negative for headache, weakness, numbness, tingling, and seizure, Psych: Negative for depression, anxiety, suicide ideation, homicidal ideation, and hallucinations, Allergy/Immunology: Negative for hives, rash, and allergies, Endocrine: Negative for neck swelling, polydipsia, polyuria, polyphagia, and marked weight changes. 14:33 Eyes: Positive for pain. 14:33 Skin: Positive for laceration(s), of the frenulum and lower lip and nose. Exam: 14:33 Constitutional: This is a well developed, well nourished patient who is awake, alert, casey and in no acute distress. Eyes: Pupils equal round and reactive to light, extra-ocular motions intact. Lids and lashes normal. Conjunctiva and sclera are non-icteric and not injected. Cornea within normal limits. Periorbital areas with no swelling, redness, or edema. Neck: Trachea midline, no thyromegaly or masses palpated, and no cervical lymphadenopathy. Supple, full range of motion without nuchal rigidity, or vertebral point tenderness. No Meningismus. Chest/axilla: Normal chest wall appearance and motion. Nontender with no deformity. No lesions are appreciated. Cardiovascular: Regular rate and rhythm with a normal S1 and S2. No gallops, murmurs, or rubs. Normal PMI, no JVD. No pulse deficits. Respiratory: Lungs have equal breath sounds bilaterally, clear to auscultation and percussion. No rales, rhonchi or wheezes noted. No increased work of breathing, no retractions or nasal flaring. Abdomen/GI: Soft, non-tender, with normal bowel sounds. No distension or tympany. No guarding or rebound. No evidence of tenderness throughout. Back: No spinal tenderness. No costovertebral tenderness. Full range of motion. Female : Normal external genitalia. Skin: Warm, dry with normal turgor. Normal color with no rashes, no lesions, and no evidence of cellulitis. MS/ Extremity: Pulses equal, no cyanosis. Neurovascular intact. Full, normal range of motion. Neuro: Awake and alert, GCS 15, oriented to person, place, time, and situation. Cranial nerves II-XII grossly intact. Motor strength 5/5 in all extremities. Sensory grossly intact. Cerebellar exam normal. Normal gait. Psych: Awake, alert, with orientation to person, place and time. Behavior, mood, and affect are within normal limits. 14:33 Head/face: Noted is abrasion(s), contusion, erythema, hematoma, a laceration(s), that is jagged, of the nose and mouth, swelling. 14:33 ENT: Nose: External nose: contusion is noted, deformity is noted, erythema is noted, swelling is noted, Nasal septum: deviates to the left, no septal hematoma appreciated, Nasal mucosa: Dried blood. edematous, Turbinates: are normal, abrasion, that is deep, bleeding, is noted from both nares, and is minimal, clotted blood, in right nare, in left nare, Mouth: Oral mucosa: moist, laceration to upper and lower lip , both superficial , not requiring sutures. Vital Signs: 13:31 BP 139 / 77; Pulse 52; Resp 17; Temp 97.8; Pulse Ox 97% on R/A; Weight 63.5 kg (R); tw2 Height 5 ft. 2 in. (157.48 cm); Pain 5/10; 14:30 BP 142 / 66; Pulse 52; Resp 16; Temp 98; Pulse Ox 99% ; sv 14:55 BP 170 / 51; Pulse 51; Resp 16; Temp 98; Pulse Ox 100% ; sv 15:00 BP 139 / 71; Pulse 50; Resp 16; Pulse Ox 100% ; sv 16:00 BP 134 / 72; Pulse 51; Resp 16; Temp 98; Pulse Ox 100% ; sv 13:31 Body Mass Index 25.61 (63.50 kg, 157.48 cm) tw2 [place] Coma Score: 13:31 Eye Response: spontaneous(4). Verbal Response: oriented(5). Motor Response: obeys sv commands(6). Total: 15. 14:30 Eye Response: spontaneous(4). Verbal Response: oriented(5). Motor Response: obeys sv commands(6). Total: 15. 14:42 Eye Response: spontaneous(4). Verbal Response: oriented(5). Motor Response: obeys casey commands(6). Total: 15. 14:55 Eye Response: spontaneous(4). Verbal Response: oriented(5). Motor Response: obeys sv commands(6). Total: 15. 16:00 Eye Response: spontaneous(4). Verbal Response: oriented(5). Motor Response: obeys sv commands(6). Total: 15. Trauma Score (Adult): 13:31 Eye Response: spontaneous(1); Verbal Response: oriented(1); Motor Response: obeys sv commands(2); Systolic BP: > 89 mm Hg(4); Respiratory Rate: 10 to 29 per min(4); Tammie Score: 15; Trauma Score: 12 14:30 Eye Response: spontaneous(1); Verbal Response: oriented(1); Motor Response: obeys sv commands(2); Systolic BP: > 89 mm Hg(4); Respiratory Rate: 10 to 29 per min(4); Tammie Score: 15; Trauma Score: 12 14:55 Eye Response: spontaneous(1); Verbal Response: oriented(1); Motor Response: obeys sv commands(2); Systolic BP: > 89 mm Hg(4); Respiratory Rate: 10 to 29 per min(4); Tammie Score: 15; Trauma Score: 12 16:00 Eye Response: spontaneous(1); Verbal Response: oriented(1); Motor Response: obeys sv commands(2); Systolic BP: > 89 mm Hg(4); Respiratory Rate: 10 to 29 per min(4); Tammie Score: 15; Trauma Score: 12 MDM: 13:[address] [facility] 14:42 Differential diagnosis: Contusion of Hematoma on Laceration of Intracranial bleed- casey Concussion cerebral contusion, epidural hematoma, sinusitis. Differential diagnosis: abrasion, closed head injury, contusion, fracture, laceration, multiple trauma. Data reviewed: vital signs, nurses notes, lab test result(s), radiologic studies, CT scan. 15:34 Data interpreted: emergency room clerk: rate is 50 beats/min, rhythm is normal sinus rhythm, casey sinus bradycardia. Counseling: I had a detailed discussion with the patient and/or guardian regarding: the historical points, exam findings, and any diagnostic results supporting the discharge/admit diagnosis, lab results, radiology results, the need for outpatient follow up, for definitive care, a plastic surgeon. 09/05 14:30 Order name: CBC with Diff; Complete Time: 15:33 [facility] 09/05 14:30 Order name: Chem 7; Complete Time: 15:33 [facility] 09/05 14:30 Order name: CT Head C Spine; Complete Time: 15:33 [facility] 09/05 14:30 Order name: CT Facial Bones W/O Con; Complete Time: 15:33 [facility] 09/05 14:30 Order name: Ice pack; Complete Time: 14:35 [facility] Administered Medications: 15:05 Drug: NS 0.9% 500 ml Route: IV; Rate: bolus; Site: right antecubital; sv 16:18 Follow up: Response: No adverse reaction; IV Status: Completed infusion; IV Intake: sv 250ml 15:05 Drug: Ancef 2 grams Route: IVPB; Infused Over: 30 mins; Site: right antecubital; sv 15:05 Drug: Tetanus-Diphtheria Toxoid Adult 0.5 ml {Poising Inspector: [employer]. Exp: sv 05/12/2021. Lot #: [id number]. } Route: IM; Site: right deltoid; 15:21 Follow up: Response: No adverse reaction sv 15:12 Drug: Zofran (Ondansetron) 4 mg Route: IVP; Site: right antecubital; sv 16:00 Follow up: Response: No adverse reaction sv 15:14 CANCELLED (Physician Discretion): Tylenol 650 mg PO once sv 15:14 Drug: morphine 2 mg {Note: rass1.} Route: IVP; Site: right antecubital; sv 16:00 Follow up: Response: No adverse reaction; Marked relief of symptoms; Pain is decreased; sv RASS: Alert and Calm (0) 15:36 Drug: Neosporin Ointment 1 application Route: Topical; Site: affected area; sv 15:57 Drug: Augmentin 875 mg Route: PO; sv 16:17 Follow up: Response: No adverse reaction sv Disposition: 09/06/19 15:35 Discharged to Home. Impression: Laceration without foreign body of other part of head - face, mouth, Fracture of nasal bones. - Condition is Stable. - Discharge Instructions: Head Injury, Adult, Facial Laceration, Nasal Fracture, Facial Laceration, Rmfe-dh-[id number], Nasal Fracture, Obne-tz-Sylg, Head Injury, Adult, Hqha-[id number]. - Prescriptions for Augmentin 875- 125 mg Oral Tablet - take 1 tablet by ORAL route every 12 hours for 10 days; 20 tablet. Tylenol- Codeine #3 300-30 mg Oral Tablet - take 2 tablets by ORAL route every 6 hours As needed; 24 tablet. - Medication Reconciliation Form, Thank You Letter, Antibiotic Education, Prescription Opioid Use form. - Follow up: Private Physician; When: 2 - 3 days; Reason: Recheck today's complaints, Continuance of care, Re-evaluation by your physician. Follow up: Eleuterio Fink; When: 2 - 3 days; Reason: Recheck today's complaints, Continuance of care, Re-evaluation by your physician. - Problem is new. - Symptoms have improved. Signatures: Dispatcher [employer] Danielle Martinez RN RN Jacob Beaver MD MD cha Wise, Tara, RN RN tw2 Corrections: (The following items were deleted from the chart) 15:14 15:00 Tylenol 650 mg PO once ordered. casey belle 16:20 15:35 09/06/2019 15:35 Discharged to Home. Impression: Laceration without foreign body sv of other part of head - face, mouth; Fracture of nasal bones. Condition is Stable. Discharge Instructions: Head Injury, Adult, Facial Laceration, Nasal Fracture, Facial Laceration, Rpyz-so-Ottk, Nasal Fracture, Ikxx-rh-Zcvy, Head Injury, Adult, Aznj-ad-Kvny. Prescriptions for Augmentin 875-125 mg Oral Tablet - take 1 tablet by ORAL route every 12 hours for 10 days; 20 tablet, Tylenol-Codeine #3 300-30 mg Oral Tablet - take 2 tablets by ORAL route every 6 hours As needed; 24 tablet. and Forms are Medication Reconciliation Form, Thank You Letter, Antibiotic Education, Prescription Opioid Use. Follow up: Private Physician; When: 2 - 3 days; Reason: Recheck today's complaints, Continuance of care, Re-evaluation by your physician. Follow up: Eleuterio Fink; When: 2 - 3 days; Reason: Recheck today's complaints, Continuance of care, Re-evaluation by your physician. Problem is new. Symptoms have improved. casey
[2019-09-06] MEDS ORDERED: AMOX/K CLAV 875 MG TAB ONE (15:58)
[2019-09-06 16:30] VITALS: TEMP 98; O2SAT 100
[2019-09-06 16:31] VITALS: BP 139/71
== END 2019-09-06 16:20 | disposition home or self-care (01) ==
LOC: ER 13:19
DX: S02.2XXA Fracture of nasal bones, initial encounter for closed fracture (principal); S01.81XA Laceration without foreign body of other part of head, initial encounter; W01.0XXA Fall on same level from slipping, tripping and stumbling without subsequent striking against object, initial encounter; Y93.89 Activity, other specified; Y92.017 Garden or yard in single-family (private) house as the place of occurrence of the external cause; Z23 Encounter for immunization
CPT/HCPCS: 96361; 85025; 80048; 36415; 70450; 72125; 70486; 76377; 90471; 90714; 96375; 96374; 99285; J2270; J0690; J7040; J2405

== ENCOUNTER 2021-01-06 11:25 | Emergency (ER) | payer OTHER ==
[2021-01-06 12:11] LABS: Absolute Lymphocytes (CBC) 1.1 K/uL (0.7-4.9); Basophils % 0.5 % (0-1.3); Hematocrit 33.9 % (36.0-45.0); Lymphocytes % 12.1 % (15.3-44.8); MPV 9.3 fL (7.6-11.3); RBC Red Blood Cell Count 3.87 M/uL (3.86-4.86)
--- NOTE | 2021-01-06 12:59 | RAD REPORT ---
EXAM DESCRIPTION: US - Extremity Venous Uni Ltd - 01/06/2021 12:21 pm CLINICAL HISTORY: PAIN COMPARISON: None. TECHNIQUE: Real-time sonographic evaluation of the right lower extremity deep venous systems was per formed. FINDINGS: Normal compressibility, flow augmentation, phasic flow and spontaneous flow are identified in the right lower extremity common femoral, superficial femoral, popliteal and posterior tibial vei ns. No intraluminal filling defects seen. IMPRESSION: No DVT in the right lower extremity.
--- NOTE | 2021-01-06 13:24 | RAD REPORT ---
EXAM DESCRIPTION: RAD - Hip Right 2 View - 01/06/2021 1:03 pm CLINICAL HISTORY: Right hip pain FINDINGS: No fracture or dislocation is seen. The bones are osteoporotic. Mild osteoarthritis involves the right hip consisting joint space narro wing and subchondral sclerosis
[2021-01-06 13:35] LABS: Potassium 4.8 mmol/L (3.5-5.1)
--- NOTE | 2021-01-06 13:45 | ER ---
Nurse's Notes [facility] Name: Christina Begum Age: 85 yrs Sex: Female : 1935 Arrival Date: 01/06/2021 Time: 11:31 Bed 26 Private MD: Diagnosis: Pain in right leg Presentation: 01/06 11:31 Chief complaint: EMS states: pt in for r thigh pain for the last month that has gotten es2 worse. Reports balance issues and falls, but R thigh pain not related to falls. Does not remember the last time she fell. is on blood thinners. 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 Coronavirus screen: Vaccine status: Patient reports receiving the 2nd dose of the covid vaccine. Ebola Screen: Patient negative for fever greater than or equal to 101.5 degrees Fahrenheit, and additional compatible Ebola Virus Disease symptoms Patient denies exposure to infectious person. Patient denies travel to an Ebola-affected area in the 21 days before illness onset. No symptoms or risks identified at this time. Initial Sepsis Screen: Does the patient meet any 2 criteria? No. Patient's initial sepsis screen is negative. Does the patient have a suspected source of infection? No. Patient's initial sepsis screen is negative. Risk Assessment: Do you want to hurt yourself or someone else? Patient reports no desire to harm self or others. Onset of symptoms. 11:31 Method Of Arrival: [facility] [facility] [place]2 11:31 Acuity: ABELINO 3 es2 Triage Assessment: 11:36 General: Appears well groomed, Behavior is calm, cooperative, appropriate for age. es2 Pain: Complains of pain in right thigh Pain currently is 8 out of 10 on a pain scale. EENT: No signs and/or symptoms were reported regarding the EENT system. Neuro: Level of Consciousness is awake, alert, obeys commands, Oriented to person, place, time, situation, Appropriate for age Speech is normal. Cardiovascular: Capillary refill < 3 seconds Patient's skin is warm and dry. Respiratory: Airway is patent Respiratory effort is even, Respiratory pattern is regular. GI: No signs and/or symptoms were reported involving the gastrointestinal system. : No signs and/or symptoms were reported regarding the genitourinary system. Derm: No signs and/or symptoms reported regarding the dermatologic system. Musculoskeletal: Reports pain in R thigh. Historical: - Home Meds: 11:35 amlodipine 5 mg tab 1 tab once daily [Active]; duloxetine 30 mg Oral cpDR 1 cap once es2 daily [Active]; hydrochlorothiazide 25 mg Oral tab 1 tab once daily [Active]; levothyroxine 75 mcg tab 1 tab once daily [Active]; indapamide 1.25 mg Oral tab 1 tab once daily [Active]; gabapentin 300 mg Oral cap 1 cap 3 times per day [Active]; Multi-Day Oral tab [Active]; - Immunization history:: Adult Immunizations up to date, Client reports receiving the 2nd dose of the Covid vaccine. - Social history:: Smoking status: Patient denies any tobacco usage or history of. Screenin:40 Abuse screen: Denies threats or abuse. Denies injuries from another. Nutritional es2 screening: No deficits noted. Tuberculosis screening: No symptoms or risk factors identified. Fall Risk Fall in past 12 months (25 points). Mental Status- Oriented to own ability (0 pts). Assessment: 11:41 Pain: Complains of pain in R thigh Pain currently is 8 out of 10 on a pain scale. es2 Neuro: Level of Consciousness is awake, alert, obeys commands, Oriented to person, place, time, situation, Appropriate for age Speech is normal. Cardiovascular: Capillary refill < 3 seconds Patient's skin is warm and dry. Respiratory: Airway is patent Respiratory effort is even, Respiratory pattern is regular. GI: No signs and/or symptoms were reported involving the gastrointestinal system. : No signs and/or symptoms were reported regarding the genitourinary system. Vital Signs: 11:31 BP 187 / 71; Pulse 65; Resp 18; Temp 98.4; Pulse Ox 98% on R/A; Pain 8/10; es2 11:41 BP 174 / 70; Pulse 64; Resp 17; Pulse Ox 99% on R/A; es2 ED Course: 11:31 Patient arrived in ED. es2 11:31 Jacquie Mena, CICI is Primary Nurse. es2 11:35 Triage completed. es2 11:36 Reid Minor PA is PHCP. jr8 11:36 Anand Paniagua MD is Attending Physician. jr8 11:38 Patient has correct armband on for positive identification. Bed in low position. Call es2 light in reach. Side rails up X2. 11:40 Arm band placed on. es2 11:40 No provider procedures requiring assistance completed. es2 12:22 US Extremity Venous Unilateral Ltd In Process Unspecified. EDMS 13:03 XRAY Hip RIGHT 2 view In Process Unspecified. EDMS 13:06 Inserted saline lock: 22 gauge in left antecubital area, using aseptic technique. Blood ld1 collected. 14:06 IV discontinued, intact, bleeding controlled, No redness/swelling at site. ld1 Administered Medications: No medications were administered Outcome: 13:44 Discharge ordered by . joseph 14:06 Discharged to home via wheelchair. ld1 14:06 Condition: stable 14:06 Discharge instructions given to patient, Instructed on discharge instructions, follow up and referral plans. Demonstrated understanding of instructions, follow-up care. 14:07 Patient left the ED. ld1 Signatures: Dispatcher [employer] EDSD Reid Minor PA PA jr8 Christina Lorenzo RN RN ld1 Jacquie Mena RN RN es2 Corrections: (The following items were deleted from the chart) 11:36 11:35 PMHx: Hypertension; es2 es2 11:36 11:35 PMHx: Hypothyroidism; es2 es2 11:36 11:35 PMHx: Depression; es2 es2
--- NOTE | 2021-01-06 13:45 | EDPHYS ---
Physician Documentation [facility] Name: Christina Begum Age: 85 yrs Sex: Female : 1935 Arrival Date: 01/06/2021 Time: 11:31 Bed 26 Private MD: ED Physician Anand Paniagua HPI: 01/06 13:39 This 85 yrs old Female presents to ER via EMS with complaints of right thigh jr8 pain. 13:39 Modifying factors: The symptoms are alleviated by nothing. the symptoms are aggravated jr8 by weight bearing. Associated signs and symptoms: The patient has no apparent associated signs or symptoms. Severity of symptoms: At their worst the symptoms were moderate, in the emergency department the symptoms are unchanged. The patient has not experienced similar symptoms in the past. The patient has not recently seen a physician. Is an 85-year-old female patient who presented to the emergency room for a 1 month onset of right mid thigh pain. Patient said that she had a lipoma extracted from her right thigh several years ago. Pain started around the incision site about a month ago and is progressed since then. Denies any other symptoms at this time.. Historical: - Home Meds: 11:35 amlodipine 5 mg tab 1 tab once daily [Active]; duloxetine 30 mg Oral cpDR 1 cap once es2 daily [Active]; hydrochlorothiazide 25 mg Oral tab 1 tab once daily [Active]; levothyroxine 75 mcg tab 1 tab once daily [Active]; indapamide 1.25 mg Oral tab 1 tab once daily [Active]; gabapentin 300 mg Oral cap 1 cap 3 times per day [Active]; Multi-Day Oral tab [Active]; - Immunization history:: Adult Immunizations up to date, Client reports receiving the 2nd dose of the Covid vaccine. - Social history:: Smoking status: Patient denies any tobacco usage or history of. ROS: 13:39 Eyes: Negative for injury, pain, redness, and discharge, ENT: Negative for injury, jr8 pain, and discharge, Neck: Negative for injury, pain, and swelling, Cardiovascular: Negative for chest pain, palpitations, and edema, Respiratory: Negative for shortness of breath, cough, wheezing, and pleuritic chest pain, Abdomen/GI: Negative for abdominal pain, nausea, vomiting, diarrhea, and constipation, Back: Negative for injury and pain, Skin: Negative for injury, rash, and discoloration, Neuro: Negative for headache, weakness, numbness, tingling, and seizure. 13:39 MS/extremity: Positive for pain, tenderness, of the right leg. Exam: 13:39 Constitutional: This is a well developed, well nourished patient who is awake, alert, jr8 and in no acute distress. Cardiovascular: Regular rate and rhythm with a normal S1 and S2. No gallops, murmurs, or rubs. Normal PMI, no JVD. No pulse deficits. Respiratory: Lungs have equal breath sounds bilaterally, clear to auscultation and percussion. No rales, rhonchi or wheezes noted. No increased work of breathing, no retractions or nasal flaring. Abdomen/GI: Soft, non-tender, with normal bowel sounds. No distension or tympany. No guarding or rebound. No evidence of tenderness throughout. Back: No spinal tenderness. No costovertebral tenderness. Full range of motion. Skin: Warm, dry with normal turgor. Normal color with no rashes, no lesions, and no evidence of cellulitis. MS/ Extremity: Pulses equal, no cyanosis. Neurovascular intact. Full, normal range of motion. Neuro: Awake and alert, GCS 15, oriented to person, place, time, and situation. Cranial nerves II-XII grossly intact. Motor strength 5/5 in all extremities. Sensory grossly intact. Vital Signs: 11:31 BP 187 / 71; Pulse 65; Resp 18; Temp 98.4; Pulse Ox 98% on R/A; Pain 8/10; es2 11:41 BP 174 / 70; Pulse 64; Resp 17; Pulse Ox 99% on R/A; es2 MDM: 11:36 Patient medically screened. jr8 13:39 Differential diagnosis: closed fracture, contusion, Rhabdomyolysis, DVT, cellulitis. jr8 Data reviewed: vital signs, nurses notes, lab test result(s), radiologic studies, plain films, ultrasound. Data interpreted: Pulse oximetry: on room air is 99 %. Interpretation: normal. Counseling: I had a detailed discussion with the patient and/or guardian regarding: the historical points, exam findings, and any diagnostic results supporting the discharge/admit diagnosis, lab results, radiology results, the need for outpatient follow up, a family practitioner, to return to the emergency department if symptoms worsen or persist or if there are any questions or concerns that arise at home. 01/06 11:49 Order name: CBC with Diff; Complete Time: 12:54 jr8 01/06 11:49 Order name: Basic Metabolic Panel; Complete Time: 13:44 jr8 01/06 11:49 Order name: CK; Complete Time: 13:44 jr8 01/06 11:49 Order name: IV; Complete Time: 13:06 jr8 01/06 11:49 Order name: US Extremity Venous Unilateral Ltd; Complete Time: 13:34 jr8 01/06 11:49 Order name: XRAY Hip RIGHT 2 view; Complete Time: 13:34 jr8 01/06 12:29 Order name: Labs - recollect needed: recollect green and lavender tube; Complete Time: bd 13:06 Administered Medications: No medications were administered Disposition: 01/07 08:49 Co-signature as Attending Physician, Anand Paniagua MD I agree with the assessment and kdr plan of care. Disposition Summary: 01/06/21 13:44 Discharge Ordered Location: Home jr8 Problem: new jr8 Symptoms: have improved jr8 Condition: Stable jr8 Diagnosis - Pain in right leg jr8 Followup: jr8 - With: Private Physician - When: 2 - 3 days - Reason: Recheck today's complaints, Continuance of care, Re-evaluation by your physician Discharge Instructions: - Discharge Summary Sheet jr8 - Pain Without a Known Cause jr8 Forms: - Medication Reconciliation Form jr8 - Thank You Letter jr8 - Antibiotic Education jr8 - Prescription Opioid Use jr8 Signatures: Dispatcher [employer] EDCO Christina Herbert Kevin, MD MD [facility] Reid Minor PA PA jr8 Jacquie Mena RN RN es2 Corrections: (The following items were deleted from the chart) 01/06 11:36 11:35 PMHx: Hypertension; es2 es2 11:36 11:35 PMHx: Hypothyroidism; es2 es2 11:36 11:35 PMHx: Depression; es2 es2
[2021-01-06 14:21] VITALS: TEMP 98.4
[2021-01-06 14:22] VITALS: BP 174/70; O2SAT 99
== END 2021-01-06 14:07 | disposition home or self-care (01) ==
LOC: ER 11:25
DX: M79.604 Pain in right leg (principal)
CPT/HCPCS: 36415; 80048; 82550; 85025; 93971; 99284

== ENCOUNTER 2021-01-20 13:37 | Emergency (ER) | payer OTHER ==
[2021-01-20] MEDS ORDERED: HYDROCODONE/APAP 5/325 MG TAB ONE (16:07)
--- NOTE | 2021-01-20 16:08 | EDPHYS ---
Physician Documentation [facility] Name: Christina Begum Age: 85 yrs Sex: Female : 1935 Arrival Date: 01/20/2021 Time: 13:37 Bed Treatment Private MD: Divine Shah ED Physician Abdelrahman Briseno HPI: 01/20 15:13 This 85 yrs old Female presents to ER via Ambulatory with complaints of Hip jr8 Pain. 15:13 The patient or guardian reports pain. that occurred at an office, sustained from a jr8 fall. The complaints affect the right leg. Onset: The symptoms/episode began/occurred 3 week(s) ago. Modifying factors: The symptoms are alleviated by nothing, the symptoms are aggravated by weight bearing. Associated signs and symptoms: Loss of consciousness: the patient experienced no loss of consciousness. Severity of symptoms: At their worst the symptoms were moderate, in the emergency department the symptoms are unchanged. The patient has experienced a previous episode. The patient has not recently seen a physician. Patient stated that she sustained a fall at her [employer] office and was seen earlier this month. No acute findings at that time. Patient stated that she continues to have right hip pain and trouble walking. Currently using walker secondary to the pain. Stated that she has had similar pain in the past when she dislocated her hip. Came back today for continued pain . Historical: - Allergies: 13:50 Adhesives; aa5 - Home Meds: 13:50 amlodipine 5 mg tab 1 tab once daily [Active]; duloxetine 30 mg Oral cpDR 1 cap once aa5 daily [Active]; gabapentin 300 mg Oral cap 1 cap 3 times per day [Active]; hydrochlorothiazide 25 mg Oral tab 1 tab once daily [Active]; indapamide 1.25 mg Oral tab 1 tab once daily [Active]; levothyroxine 75 mcg tab 1 tab once daily [Active]; Multi-Day Oral tab [Active]; - PMHx: 13:50 Hypertensive disorder; Hypothyroidism; aa5 - Immunization history:: Client reports receiving the 2nd dose of the Covid vaccine. - Social history:: Smoking status: Patient denies any tobacco usage or history of. ROS: 15:13 Eyes: Negative for injury, pain, redness, and discharge, ENT: Negative for injury, jr8 pain, and discharge, Neck: Negative for injury, pain, and swelling, Cardiovascular: Negative for chest pain, palpitations, and edema, Respiratory: Negative for shortness of breath, cough, wheezing, and pleuritic chest pain, Abdomen/GI: Negative for abdominal pain, nausea, vomiting, diarrhea, and constipation, Back: Negative for injury and pain, Skin: Negative for injury, rash, and discoloration, Neuro: Negative for headache, weakness, numbness, tingling, and seizure. 15:13 MS/extremity: Positive for pain, of the right hip. Exam: 15:13 Constitutional: This is a well developed, well nourished patient who is awake, alert, jr8 and in no acute distress. Cardiovascular: Regular rate and rhythm with a normal S1 and S2. No gallops, murmurs, or rubs. Normal PMI, no JVD. No pulse deficits. Respiratory: Lungs have equal breath sounds bilaterally, clear to auscultation and percussion. No rales, rhonchi or wheezes noted. No increased work of breathing, no retractions or nasal flaring. Abdomen/GI: Soft, non-tender, with normal bowel sounds. No distension or tympany. No guarding or rebound. No evidence of tenderness throughout. Skin: Warm, dry with normal turgor. Normal color with no rashes, no lesions, and no evidence of cellulitis. Neuro: Awake and alert, GCS 15, oriented to person, place, time, and situation. Cranial nerves II-XII grossly intact. Motor strength 5/5 in all extremities. Sensory grossly intact. 15:13 Back: pain, that is mild, of the lumbar area, ROM is normal, normal spinal alignment noted, CVA tenderness, is absent, vertebral tenderness, is not appreciated. 15:13 Musculoskeletal/extremity: Extremities: grossly normal except: noted in the right hip: pain, tenderness, ROM: intact in all extremities, full active range of motion, full passive range of motion, Circulation is intact in all extremities. Sensation intact. Vital Signs: 13:47 BP 132 / 105; Pulse 94; Resp 18 S; Temp 97.5(TE); Pulse Ox 97% on R/A; Weight 63.05 kg aa5 (R); Height 5 ft. 1 in. (154.94 cm) (R); 15:37 BP 130 / 90; Pulse 62; Resp 16; Pulse Ox 100% ; vg1 13:47 Body Mass Index 26.26 (63.05 kg, 154.94 cm) aa5 MDM: 14:21 Patient medically screened. jr8 15:52 Data reviewed: vital signs, nurses notes, radiologic studies, plain films. Data jr8 interpreted: Pulse oximetry: on room air is 100 %. Interpretation: normal. Counseling: I had a detailed discussion with the patient and/or guardian regarding: the historical points, exam findings, and any diagnostic results supporting the discharge/admit diagnosis, radiology results, the need for outpatient follow up, a orthopedic surgeon, to return to the emergency department if symptoms worsen or persist or if there are any questions or concerns that arise at home. 01/20 14:40 Order name: XRAY Hip RIGHT 2 view; Complete Time: 16:35 jr8 01/20 14:51 Order name: XRAY Lumbar Spine (3 Views); Complete Time: 16:35 jr8 Administered Medications: 15:42 Drug: HYDROcodone-acetaminophen 5 mg-325 mg 1 tabs Route: PO; vg1 16:20 Follow up: Response: No adverse reaction; Marked relief of symptoms vg1 Disposition: 01/21 08:56 Co-signature as Attending Physician, Abdelrahman Briseno MD I agree with the assessment and sp3 plan of care. Disposition Summary: 01/20/21 16:07 Discharge Ordered Location: Home jr8 Problem: new jr8 Symptoms: have improved jr8 Condition: Stable jr8 Diagnosis - Inferior pubic rami fracture jr8 Followup: jr8 - With: Eduard Whittington MD - When: 5 - 6 days - Reason: Recheck today's complaints, Continuance of care, Re-evaluation by your physician Discharge Instructions: - Discharge Summary Sheet jr8 - Simple Pelvic Fracture, Adult jr8 Forms: - Medication Reconciliation Form jr8 - Thank You Letter jr8 - Antibiotic Education jr8 - Prescription Opioid Use jr8 Prescriptions: - Tylenol-Codeine #3 300 mg-30 mg Oral - take 1 tablet by ORAL route every 6 hours As needed; 12 tablet; Refills: 0, jr8 Product Selection Permitted Signatures: Dispatcher [facility] Ila Flores RN RN aa5 Reid Minor PA PA jr8 Ladi Osorio RN RN vg1 Abdelrahman Briseno MD MD sp3 Corrections: (The following items were deleted from the chart) 01/20 13:51 13:50 Allergies: No Known Allergies; aa5 aa5
--- NOTE | 2021-01-20 16:08 | ER ---
Nurse's Notes [facility] Name: Christina Begum Age: 85 yrs Sex: Female : 1935 Arrival Date: 01/20/2021 Time: 13:37 Bed Treatment Private MD: Divine Shah Diagnosis: Inferior pubic rami fracture Presentation: 01/20 13:47 Chief complaint: Patient states: "I think I dislocated my hip, the last fall I had was aa5 4 weeks ago". Pt c/o right hip pain. Pt reports she has been able to walk using her walker. Coronavirus screen: At this time, the client does not indicate any symptoms associated with coronavirus-19. Ebola Screen: No symptoms or risks identified at this time. Initial Sepsis Screen: Does the patient meet any 2 criteria? HR > 90 bpm. Does the patient have a suspected source of infection? No. Patient's initial sepsis screen is negative. Risk Assessment: Do you want to hurt yourself or someone else? Patient reports no desire to harm self or others. Onset of symptoms was November 2020. 13:47 Acuity: ABELINO 4 aa5 13:47 Method Of Arrival: Ambulatory aa5 Historical: - Allergies: 13:50 Adhesives; aa5 - Home Meds: 13:50 amlodipine 5 mg tab 1 tab once daily [Active]; duloxetine 30 mg Oral cpDR 1 cap once aa5 daily [Active]; gabapentin 300 mg Oral cap 1 cap 3 times per day [Active]; hydrochlorothiazide 25 mg Oral tab 1 tab once daily [Active]; indapamide 1.25 mg Oral tab 1 tab once daily [Active]; levothyroxine 75 mcg tab 1 tab once daily [Active]; Multi-Day Oral tab [Active]; - PMHx: 13:50 Hypertensive disorder; Hypothyroidism; aa5 - Immunization history:: Client reports receiving the 2nd dose of the Covid vaccine. - Social history:: Smoking status: Patient denies any tobacco usage or history of. Screenin:07 Abuse screen: Denies threats or abuse. Denies injuries from another. Nutritional ch5 screening: No deficits noted. Tuberculosis screening: No symptoms or risk factors identified. Fall Risk None identified. Assessment: 14:07 Reassessment: Patient is alert, oriented x 3, equal unlabored respirations, skin ch5 warm/dry/pink. Musculoskeletal: Reports pain in Right Hip. 14:17 General: Appears in no apparent distress. uncomfortable, Behavior is calm, cooperative. vg1 Pain: Complains of pain in right leg, right hip and right buttocks Pain currently is 10 out of 10 on a pain scale. Pain began about 3-4 weeks ago. Pt states fell against the corner of a wall against spin. states since then Right buttocks, right hip and right thigh pain. Stated pain from right hip radiates to right thigh. Neuro: Level of Consciousness is awake, alert, obeys commands, Oriented to person, place, time, situation. Cardiovascular: Patient's skin is warm and dry. Respiratory: Airway is patent Respiratory effort is even, unlabored. GI: No signs and/or symptoms were reported involving the gastrointestinal system. : No signs and/or symptoms were reported regarding the genitourinary system. EENT: No signs and/or symptoms were reported regarding the EENT system. Derm: Skin is intact, Skin is pink, warm \\T\\ dry. Musculoskeletal: Circulation, motion, and sensation intact. Reports pain in Right hip, right thigh and right buttocks. 15:37 Reassessment: Patient appears in no apparent distress at this time. No changes from vg1 previously documented assessment. Patient and/or family updated on plan of care and expected duration. Pain level reassessed. Patient is alert, oriented x 3, equal unlabored respirations, skin warm/dry/pink. 15:38 Reassessment: Received VO from Iván CLAYTON to administer [place] 5 mg PO x1. vg1 16:31 Reassessment: Patient appears in no apparent distress at this time. Patient and/or vg1 family updated on plan of care and expected duration. Pain level reassessed. Patient is alert, oriented x 3, equal unlabored respirations, skin warm/dry/pink. Patient states feeling better. Vital Signs: 13:47 BP 132 / 105; Pulse 94; Resp 18 S; Temp 97.5(TE); Pulse Ox 97% on R/A; Weight 63.05 kg aa5 (R); Height 5 ft. 1 in. (154.94 cm) (R); 15:37 BP 130 / 90; Pulse 62; Resp 16; Pulse Ox 100% ; vg1 13:47 Body Mass Index 26.26 (63.05 kg, 154.94 cm) aa5 ED Course: 13:37 Patient arrived in ED. am2 13:39 Divine Shah MD is Private Physician. am2 13:47 Arm band placed on. aa5 13:49 Triage completed. aa5 14:07 Patient has correct armband on for positive identification. Call light in reach. ch5 14:07 No provider procedures requiring assistance completed. ch5 14:13 Ladi Osorio, RN is Primary Nurse. vg1 14:15 Reid Minor PA is PHCP. jr8 14:15 Abdelrahman Briseno MD is Attending Physician. jr8 15:37 XRAY Hip RIGHT 2 view In Process Unspecified. EDMS 15:37 XRAY Lumbar Spine (3 Views) In Process Unspecified. EDMS 15:55 Eduard Whittington MD is Referral Physician. jr8 16:32 Patient did not have IV access during this emergency room visit. vg1 Administered Medications: 15:42 Drug: HYDROcodone-acetaminophen 5 mg-325 mg 1 tabs Route: PO; vg1 16:20 Follow up: Response: No adverse reaction; Marked relief of symptoms vg1 Outcome: 16:07 Discharge ordered by MD. jr8 16:31 Discharged to home ambulatory, with friend. vg1 16:31 Condition: stable 16:31 Discharge instructions given to patient, Instructed on discharge instructions, follow up and referral plans. medication usage, Demonstrated understanding of instructions, follow-up care, medications, Prescriptions given X 1. 16:39 Patient left the ED. vg1 Signatures: Dispatcher [employer] EDMS Ila Flores RN RN aa5 Reid Minor PA PA jr8 Yessica Cisse am2 Ladi Osorio, RN RN vg1 Nitesh Gore RN RN 5 Corrections: (The following items were deleted from the chart) 13:51 13:47 Initial Sepsis Screen: Does the patient meet any 2 criteria? No. Patient's aa5 initial sepsis screen is negative. Does the patient have a suspected source of infection? No. Patient's initial sepsis screen is negative. aa5 13:51 13:50 Allergies: No Known Allergies; aa5 aa5
--- NOTE | 2021-01-20 16:24 | RAD REPORT ---
EXAM DESCRIPTION: RAD - Lumbar Spine 3 Views - 01/20/2021 3:37 pm CLINICAL HISTORY: Back pain FINDINGS: Postsurgical changes involve the mid and distal lumbar spine. 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 Osteoporosis
--- NOTE | 2021-01-20 16:25 | RAD REPORT ---
EXAM DESCRIPTION: RAD - Hip Right 2 View - 01/20/2021 3:37 pm CLINICAL HISTORY: Right hip pain FINDINGS: No fracture or dislocation is seen. The bones are osteoporotic. Mild to moderate osteoarthritis involves the right hip consisting joint space narrowing and subchondral sclerosis
[2021-01-20 16:44] VITALS: TEMP 97.5
[2021-01-20 16:46] VITALS: BP 130/90; O2SAT 100
== END 2021-01-20 16:39 | disposition home or self-care (01) ==
LOC: ER 13:37
DX: S32.591A Other specified fracture of right pubis, initial encounter for closed fracture (principal); W19.XXXA Unspecified fall, initial encounter; Y93.9 Activity, unspecified; Y92.9 Unspecified place or not applicable
CPT/HCPCS: 72100; 99283